=== PATIENT | female | born 1990 | race African-American/Black ===

== ENCOUNTER 2018-06-23 01:14 | Emergency (ER) | payer BC ==
[~2018-06-23] VITALS: Ht 170.2 cm; Wt 72.0 kg
[2018-06-23 01:23] VITALS: BP 104/70
== END 2018-06-23 01:45 | disposition left against medical advice (07) ==
LOC: ER 01:14
DX: Z53.21 Procedure and treatment not carried out due to patient leaving prior to being seen by health care provider (principal)